=== PATIENT | female | born 1960 | race African-American/Black ===

== ENCOUNTER → 2020-01-06 | Outpatient (CLI) | payer OTHER ==
--- NOTE | 2020-01-06 14:46 | RAD ---
Examination: 1. Bilateral digital diagnostic mammogram. 2. Limited right breast ultrasound. INDICATION: 59-year-old woman due for screening complains of spontaneous clear right nipple discharge. No known triggerpoints. This is been ongoing for the past 2-3 months. No bloody discharge. No other complaints. COMPARISON: 08/16/2018, 04/09/2017, 12/05/2012. TECHNIQUE: CC and MLO views of both breasts were obtained with 2-D technique. Targeted ultrasound of the subareolar right breast was subsequently pursued. Mammographic images were reviewed with computer-aided detection. FINDINGS: Heterogeneously dense breasts. No developing mass, suspicious calcifications, or architectural distortion in either breast on mammography. The nipple areola complexes are unremarkable and there is no skin thickening. In further evaluation of complains of spontaneous clear right nipple discharge, targeted ultrasound of the subareolar right breast was performed. This revealed two dilated subareolar ducts extending into the nipple without an obvious intraductal mass. At the 6:00 position right breast, slightly dilated ducts were also identified. The presence of 2 dilated ducts in the nipple suggests this is a multi duct process but this could also reflect tortuosity of a solitary dilated duct. IMPRESSION: Incomplete. The right breast needs additional imaging. Recommend right ductogram. Ultimately, she may require a surgical consultation for discussion of surgical treatment options. Discussed with patient. BI-RADS Category 0 Incomplete. Right breast needs additional imaging evaluation. Patient entered into a reminder system with target due date for next mammogram. BI-RADS 0 -- incomplete assessment
== END | disposition home or self-care (01) ==
LOC: MAMMO 08:51
PROVIDERS: ATTEND Family Medicine
DX: R92.2 Inconclusive mammogram (principal)
CPT/HCPCS: 76641; 77066